=== PATIENT | female | born 1980 | race Caucasian/White ===

== ENCOUNTER 2017-01-20 12:30 | Emergency (ER) | payer MEDICAID ==
[~2017-01-20] VITALS: Ht 152.4 cm; Wt 90.7 kg
[~2017-01-20 12:30] MED LIST: IMITREX50 MG PO; UNKNOWN BP MEDS PO; [UNRECOGNIZED DRUG - REMARK]
[2017-01-20 12:35] VITALS: BP 129/82
--- NOTE | 2017-01-20 12:40 | NUR ---
Patient ambulated to bed 5. RN evaluating patient at bedside.
--- NOTE | 2017-01-20 12:42 | NUR ---
PT PRESENTS TO ER W/C/O N/V/D AND RIGHT FLANK PAIN X2 DAYS. HX LUPUS; SKIN IS PINK/WARM/DRY; AAOX4 WITH EVEN AND STEADY GAIT; LUNGS CLEAR BL; HR EVEN AND REGULAR; PT DENIES ANY FEVER, CP, SOB, OR COUGH AT THIS TIME; PATIENT STATES RIGHT FLANK PAIN OF 9/10 AT THIS TIME; VSS; PATIENT POSITIONED FOR COMFORT; HOB ELEVATED; BEDRAILS UP X2; BED DOWN. ER MD MADE AWARE OF PT STATUS.
[2017-01-20] MEDS ORDERED: NACL 0.9% 500 ML IV ONE (12:48)
[2017-01-20] MEDS ORDERED: KETOROLAC 30 MG/ML VIAL IVP ONE (12:50)
[2017-01-20] MEDS ORDERED: ONDANSETRON 4 MG/2 ML VIAL IVP ONE (12:50)
[2017-01-20] MEDS ORDERED: fentaNYL 0.05 MG/ML VIAL IVP ONE (13:35)
[2017-01-20] MEDS ORDERED: diphenhydrAMINE 50 MG/ML VIAL IVP ONE (13:35)
--- NOTE | 2017-01-20 13:51 | NUR ---
Patient taken to CT scan via wheelchair by tech.
--- NOTE | 2017-01-20 14:05 | NUR ---
AAO PT BACK FROM CT PLACED ON MONITOR, VSS, C/O PAIN 03/30, POST FENTANYL ADMINISTRATION "FEELS BETTER" PER PT, WILL CONTINUE TO MONITOR
--- NOTE | 2017-01-20 14:31 | NUR ---
PT STILL C/O ITCHY POST BENADRYL ADMINISTRATION, DR VAUGHN NOTIFIED, WILL WAIT PER MD, WILL CONTINUE TO MONITOR
[2017-01-20 15:04] VITALS: BP 125/76
--- NOTE | 2017-01-20 15:04 | NUR ---
Patient discharged with v/s stable. Written and verbal after care instructions given and explained. Patient alert, oriented and verbalized understanding of instructions. Ambulatory with steady gait. All questions addressed prior to discharge. ID band removed. Patient advised to follow up with PMD. Rx of BENADRYL, TYLENOL, ZOFRAN given. Patient educated on indication of medication including possible reaction and side effects. Opportunity to ask questions provided and answered.
== END 2017-01-20 15:04 | disposition home or self-care (01) ==
LOC: EDBD → MED 12:30 → EDBD 12:30 → MED 15:04
DX: A08.4 Viral intestinal infection, unspecified (principal); I10 Essential (primary) hypertension; Z87.442 Personal history of urinary calculi; Z86.73 Personal history of transient ischemic attack (TIA), and cerebral infarction without residual deficits; Z88.1 Allergy status to other antibiotic agents; Z88.8 Allergy status to other drugs, medicaments and biological substances
CPT/HCPCS: 36415; 74176; 80053; 81001; 81025; 85025; 85610; 85730; 87086; 96361; 96374; 96375; 99285; J1200; J1885; J2405; J3010; J7030

== ENCOUNTER 2017-02-07 22:33 | Emergency (ER) | payer MEDICAID ==
[~2017-02-07] VITALS: Ht 152.4 cm; Wt 90.7 kg
[~2017-02-07 22:33] MED LIST changes: +IMI50 PO; -IMITREX50 MG PO; -UNKNOWN BP MEDS PO; -[UNRECOGNIZED DRUG - REMARK]
[2017-02-07 22:42] VITALS: BP 135/88
[2017-02-07 23:09] VITALS: BP 144/78
--- NOTE | 2017-02-08 00:37 | NUR ---
PATIENT PRESENTS TO ED WITH BACK PAIN . PT STATES SHE ALSO HAS A HEADACHE, N/V, AND DIFFICULTY HOLDING DOWN FOOD. PT STATES THE BACK PAIN IS RADIATING TO HER LLQ ABD . DENIES DIARRHEA; SKIN IS PINK/WARM/DRY; AAOX4 WITH EVEN AND STEADY GAIT; LUNGS CLEAR BL; HR EVEN AND REGULAR; PT DENIES ANY FEVER, CP, SOB, OR COUGH AT THIS TIME; PATIENT STATES PAIN OF 4/10 AT THIS TIME; VSS; PATIENT POSITIONED FOR COMFORT; HOB ELEVATED; BEDRAILS UP X2; BED DOWN. ER MD MADE AWARE OF PT STATUS.
[2017-02-08] MEDS ORDERED: ONDANSETRON 4 MG ODT PO ONE (01:00)
[2017-02-08] MEDS ORDERED: HYDROcodone/APAP 5/325 MG 1 TAB TAB PO ONE (01:00)
[2017-02-08] MEDS ORDERED: KETOROLAC 30 MG/ML VIAL IM ONE (01:00)
[2017-02-08 01:16] LABS: ANION GAP 7.7 (8-16); CALCIUM 8.8 mg/dL (8.5-10.1); CARBON DIOXIDE 30.9 mmol/L (21-32); CREATININE 0.8 mg/dL (0.6-1.3); POTASSIUM 3.6 mmol/L (3.5-5.1)
[2017-02-08 01:18] LABS: APPEARANCE,URINE SL CLOUDY (CLEAR); BILIRUBIN,URINE NEGATIVE (NEGATIVE); BLOOD, URINE 3+ (NEGATIVE); COLOR,URINE YELLOW (YELLOW); LEUKOCYTE ESTERASE ,URINE NEGATIVE (NEGATIVE); NITRITE, URINE NEGATIVE (NEGATIVE); PH,URINE 5.5 (5.0-9.0); PROTEIN,URINE NEGATIVE (NEGATIVE); UGLUCOSE NEGATIVE (NEGATIVE); UROBILINOGEN,URINE 0.2 EU/dL (0.2 - 1)
[2017-02-08 01:32] LABS: BACTERIA,URINE 3+ /HPF (None Seen); MUCUS,URINE 4+ /LPF (None Seen); WBC,URINE 0-5 (RARE) /HPF (0-5)
[2017-02-08] MEDS ORDERED: HYDROmorphone 1 MG/ML AMP IM ONE (01:35)
--- NOTE | 2017-02-08 02:22 | NUR ---
Patient appears to be resting comfortably in bed. Vital Signs within normal limits. Respirations even and unlabored.
[2017-02-08 03:59] VITALS: BP 121/77
--- NOTE | 2017-02-08 04:00 | NUR ---
Patient discharged with v/s stable. Written and verbal after care instructions given and explained. Patient alert, oriented and verbalized understanding of instructions. Ambulatory with steady gait. All questions addressed prior to discharge. ID band removed. Patient advised to follow up with PMD. Rx of NORCO AND DIPHENHYDRAMINE HYDROCHLORIDE given. Patient educated on indication of medication including possible reaction and side effects. Opportunity to ask questions provided and answered. PT STATES SHE WILL BE PICKED UP BY
== END 2017-02-08 03:59 | disposition home or self-care (01) ==
LOC: EDBD 22:33 → MED 22:33
DX: S63.502A Unspecified sprain of left wrist, initial encounter (principal); R10.9 Unspecified abdominal pain; Z87.442 Personal history of urinary calculi; Z88.1 Allergy status to other antibiotic agents; X58.XXXA Exposure to other specified factors, initial encounter; Y93.89 Activity, other specified; Y92.89 Other specified places as the place of occurrence of the external cause; Y99.8 Other external cause status
CPT/HCPCS: 36415; 73110; 74176; 80048; 81001; 81025; 87086; 96372; 99285; J1170; J1885; Q0092; S0119

== ENCOUNTER 2019-04-04 00:44 | Emergency (ER) | payer SELFPAY ==
[~2019-04-04] VITALS: Ht 152.4 cm; Wt 72.1 kg
[2019-04-04 00:45] VITALS: BP 119/85
--- NOTE | 2019-04-04 00:47 | NUR ---
TO LOBBY A/W BED AMBULATORY
--- NOTE | 2019-04-04 01:12 | NUR ---
PT AMBULATED TO ER BED 11
[2019-04-04 01:24] VITALS: BP 119/85
--- NOTE | 2019-04-04 01:24 | NUR ---
38 Y/O F PRESENTED TO ED WITH C/O R WRIST PAIN S/P SLIP AND FALL IN THE SHOWER X10 HOURS. 9/10 PAIN, RADIATED TO R ARM. R WRIST TENDER TO TOUCH. +CMS/. BILATERAL RADIAL PULSES PRESENT. NO DEFORMITY NOTED. LIMITED ROM TO R WRIST. SKIN PINK AND DRY. ERMD NOTIFIED. WILL CONTINUE TO MONITOR.
[2019-04-04] MEDS ORDERED: HYDROcodone/APAP 5/325 MG 1 TAB TAB PO ONE (01:55)
--- NOTE | 2019-04-04 03:18 | NUR ---
Patient discharged with v/s stable. Written and verbal after care instructions given and explained. Patient alert, oriented and verbalized understanding of instructions. Ambulatory with steady gait. All questions addressed prior to discharge. ID band removed. Patient advised to follow up with PMD. Rx of [place] and Ibuprofen given. Patient educated on indication of medication including possible reaction and side effects. Opportunity to ask questions provided and answered.
== END 2019-04-04 03:18 | disposition home or self-care (01) ==
LOC: MED 00:44
DX: M25.531 Pain in right wrist (principal); Z87.39 Personal history of other diseases of the musculoskeletal system and connective tissue; Z87.442 Personal history of urinary calculi; Z79.899 Other long term (current) drug therapy; Z88.1 Allergy status to other antibiotic agents; Z88.8 Allergy status to other drugs, medicaments and biological substances; W19.XXXA Unspecified fall, initial encounter; Y93.89 Activity, other specified; Y92.89 Other specified places as the place of occurrence of the external cause; Y99.8 Other external cause status
CPT/HCPCS: 29125; 73110; 99283; Q0092

== ENCOUNTER 2019-04-07 02:37 | Emergency (ER) | payer SELFPAY ==
[~2019-04-07] VITALS: Ht 152.4 cm; Wt 72.6 kg
[2019-04-07 02:40] VITALS: BP 129/90
--- NOTE | 2019-04-07 02:40 | NUR ---
TO BED # 04 AMBULATORY
--- NOTE | 2019-04-07 02:50 | NUR ---
PT AMBULATED TO BED 4 WITH DAUGHTER
--- NOTE | 2019-04-07 02:55 | NUR ---
DR MAHAN AT BEDSIDE
--- NOTE | 2019-04-07 02:55 | NUR ---
38/F PRESENTS TO ED WITH DAUGHTER, C/O 9/10 SHARP RUQ PAIN, RADIATING TO R BACK, X6 HRS AFTER EATING. PT REPORTS N/V X3 EPISODES. DENIES DYSURIA, CONSTIPATION OR DIARRHEA. AOX4, SKIN NORMAL WARM AND DRY, RR EVEN AND UNLABORED. LUNG SOUNDS CLEAR BL. BS ACTIVE X4, ABD SOFT ROUND TENDER TO RUQ. HX LUPUS, HERNIA REPAIR, , SKIN CA, TUBAL LIGATION OTC IBUPROFEN 4 HRS AGO WITH NO RELIEF
[2019-04-07] MEDS ORDERED: MORPHINE SULFATE 4 MG/ML SYR IVP ONE ×2 (03:00→05:10)
[2019-04-07] MEDS ORDERED: ONDANSETRON 4 MG/2 ML VIAL IVP ONE (03:00)
[2019-04-07] MEDS ORDERED: NACL 0.9% 1,000 ML IV ONE (03:00)
[2019-04-07 03:14] LABS: BASOPHILS # (AUTO) 0.1 K/uL (0.00-0.22); BASOPHILS % (AUTO) 0.8 % (0.0-2.0); EOSINOPHILS # (AUTO) 0.2 K/uL (0-0.4); EOSINOPHILS % (AUTO) 2.6 % (0.0-4.0); HEMATOCRIT 33.9 % (36-48); HEMOGLOBIN 10.8 g/dL (12.0-16.0); LYMPHOCYTES # (AUTO) 2.1 K/uL (2.5-16.5); LYMPHOCYTES % (AUTO) 26.3 % (20.5-51.1); MEAN CORPUSCULAR HEMOGLOBIN 25 pg (27-31); MEAN CORPUSCULAR HGB CONC 32 g/dL (33-37); MEAN CORPUSCULAR VOLUME 77.9 fL (80-94); MONOCYTES # (AUTO) 0.5 K/uL (0.8-1.0); MONOCYTES % (AUTO) 6.7 % (1.7-9.3); NEUTROPHILS % (AUTO) 63.6 % (42.2-75.2); PLATELET COUNT (AUTO) 260 K/uL (140-450); RED BLOOD CELL COUNT(AUTO) 4.34 MIL/uL (4.20-5.40); RED CELL DISTRIBUTION WIDTH 18.3 % (11.6-13.7); WHITE BLOOD COUNT (AUTO) 7.8 K/uL (4.8-10.8)
[2019-04-07] MEDS ORDERED: MORPHINE SULFATE 2 MG/ML SYR ONE ×2 (03:17→05:24)
[2019-04-07 03:22] LABS: ANION GAP 11.4 (8-16); CARBON DIOXIDE 26.9 mmol/L (21-32); CREATININE 0.8 mg/dL (0.6-1.3); POTASSIUM 3.3 mmol/L (3.5-5.1)
[2019-04-07] MEDS ORDERED: diphenhydrAMINE 50 MG/ML VIAL IVP ONE ×2 (03:25→04:40)
[2019-04-07 03:28] LABS: ALBUMIN 3.5 g/dL (3.4-5.0); TOTAL BILIRUBIN 0.2 mg/dL (0.0-1.0)
[2019-04-07] MEDS ORDERED: POTASSIUM CHLORIDE 10 MEQ TABER PO ONE (03:30)
--- NOTE | 2019-04-07 03:31 | NUR ---
PT C/O ITCHING AFTER MORPHINE IVP. PT REQUESTED FOR BENADRYL. PT WITH ALLERGY TO CIPRO, LORATADINE AND TORADOL, PT REPORTS REACTION OF "DIFFICULT TO BREATHE." DR MAHAN MADE AWARE. PT STATED THAT SHE HAS HAD BENADRYL BEFORE WITHOUT ADVERSE/ANAPHYLACTIC REACTION
--- NOTE | 2019-04-07 04:14 | NUR ---
US AT BEDSIDE
--- NOTE | 2019-04-07 04:52 | NUR ---
PT LAYING IN BED, DAUGHTER AT BEDSIDE. REPORTS ITCHING DESPITE BENADRYL IVP, REQUESTING FOR ANOTHER DOSE OF BENADRYL. PT REPORTS SLIGHT IMPROVEMENT IN RUQ PAIN AND NAUSEA. DR MAHAN MADE AWARE.
--- NOTE | 2019-04-07 04:56 | NUR ---
PT TAKEN TO CT
[2019-04-07 05:59] LABS: APPEARANCE,URINE CLEAR (CLEAR); BILIRUBIN,URINE NEGATIVE (NEGATIVE); BLOOD, URINE 3+ (NEGATIVE); COLOR,URINE YELLOW (YELLOW); LEUKOCYTE ESTERASE ,URINE NEGATIVE (NEGATIVE); NITRITE, URINE NEGATIVE (NEGATIVE); UGLUCOSE NEGATIVE (NEGATIVE)
[2019-04-07 06:30] VITALS: BP 144/96
== END 2019-04-07 06:30 | disposition home or self-care (01) ==
LOC: MED 02:37
DX: N20.0 Calculus of kidney (principal); K59.00 Constipation, unspecified; M32.9 Systemic lupus erythematosus, unspecified; Z88.1 Allergy status to other antibiotic agents; Z88.6 Allergy status to analgesic agent; Z79.899 Other long term (current) drug therapy; Z87.442 Personal history of urinary calculi; Z98.890 Other specified postprocedural states
CPT/HCPCS: 36415; 74176; 76705; 80053; 81001; 81025; 83690; 85025; 87086; 96361; 96374; 96375; 96376; 99284; J1200; J2270; J2405; J7030; Q0092